=== PATIENT | male | born 2000 | race Caucasian/White ===

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

== ENCOUNTER 2018-01-07 11:30 | Outpatient (RCR) | payer OTHER, SELFPAY ==
--- NOTE | 2018-06-17 10:44 | HP.PTDCNRP_ITS ---
HP - Discharge Summary (1) - Patient Information MELIZA HEMPHILL was seen in my office for initial evaluation on 12/25/17. The following Plan of Care was established for this patient: Initial Frequency: 2x /Week Initial Duration: 6 Weeks - Anticipated Interventions Patient/Client Instruction: Educate patient on: Condition, Plan of Care For the Purpose of:: To decrease pain, To decrease swelling/inflammation, To im prove performance and independence with ADL's Therapeutic Exercise to Include: Strength training, Endurance training, Flexibilty training For the Purpose of:: To decrease pain, To improve muscle performance and motor function, To improve gait and locomotor functions, To improve endurance Iontophoresis (with Dexamethozone, with Acetic acid): Yes Ultrasound (thermal/non thermal): Yes For the Purpose of:: To decrease pain, To improve muscle performance and motor function, To improve safety with gait This patient was last seen in our office 01/07/18. Pertinent comments regarding their Physical therapy will appear below: Pt. was seen for his hip pain in PT. Pt. treated with strengthening, foam rolling, stretching and video analysis. Pt. was to leaving the area for the summer and was to follow up with PT if needed. PT. has no been seen in several months and will be DC from PT at this point in time. At this point I will be discontinuing this patient from physical therapy. I would be happy to see this patient again in the future if found appropriate by the physician. Thank you! Fabian Troy
== END 2018-01-07 19:00 | disposition home or self-care (01) ==
LOC: PT 11:30
PROVIDERS: Visit Provider Orthopaedic Surgery
DX: M25.551 Pain in right hip (principal); K62.89 Other specified diseases of anus and rectum
CPT/HCPCS: 97110; 97162; 97530